=== PATIENT | male | born 1985 | race Two or more races ===

== ENCOUNTER 2019-10-27 06:15 | Day surgery (SDC) | payer OTHER ==
[~2019-10-27 06:15] MED LIST: ASPIR 8181 MG PO; BREO ELLIPTA 21 EACH IH; CARDIZEM CD120 MG PO; CILOSTAZOL100 MG PO; DERMACINRX5000 UNIT PO; IRBESARTAN-HCT1 EAC1 PO; JANUMET XR 50-1 EAC1 PO; MONTELUKAST SOD10 MG PO; ZETIA10 MG PO
[2019-10-27] MEDS ORDERED: COLACE100 MG PO (09:28)
[2019-10-27] MEDS ORDERED: NEURONTIN300 MG PO (09:28)
[2019-10-27] MEDS ORDERED: PERCOCET 5-3251 EACH PO (09:28)
== END 2019-10-27 12:50 | disposition home or self-care (01) ==
LOC: CIR.AMB 06:15
PROVIDERS: ATTEND Surgery
DX: K64.8 Other hemorrhoids (principal)

== ENCOUNTER 2020-01-18 09:00 | Day surgery (SDC) | payer OTHER ==
[~2020-01-18] VITALS: Ht 185.4 cm; Wt 163.3 kg
[~2020-01-18 09:00] MED LIST changes: +COLACE100 MG PO; +NEURONTIN300 MG PO; +PERCOCET 5-3251 EACH PO
[2020-01-19] MEDS ORDERED: PERCOCET 5-3251 EACH PO (12:55)
[2020-01-19] MEDS ORDERED: INTESTINEX680 M1 PO (12:55)
[2020-01-19] MEDS ORDERED: AMOX1TAB5 PO (12:55)
== END 2020-01-19 08:00 | disposition home or self-care (01) ==
LOC: CIR.AMB 09:00 → EDSTATUS 10:00 → SEC-K 14:56 → O/R 14:56 → SEC-K 17:10 → SURH 17:10 → O/R 17:10 → CIR.AMB 18:00 → SURH 01-19 14:45
PROVIDERS: ATTEND Surgery
DX: K61.0 Anal abscess (principal); K62.89 Other specified diseases of anus and rectum; K64.4 Residual hemorrhoidal skin tags; B96.29 Other Escherichia coli [E. coli] as the cause of diseases classified elsewhere; B96.7 Clostridium perfringens [C. perfringens] as the cause of diseases classified elsewhere; B96.6 Bacteroides fragilis [B. fragilis] as the cause of diseases classified elsewhere; Z20.828 Contact with and (suspected) exposure to other viral communicable diseases

== ENCOUNTER 2020-04-05 07:08 | Day surgery (SDC) | payer OTHER ==
[~2020-04-05 07:08] MED LIST changes: +AMOX1TAB5 PO; +INTESTINEX680 M1 PO
[2020-04-05] MEDS ORDERED: PERCOCET 5-3251 EACH PO (11:58)
[2020-04-05] MEDS ORDERED: COLACE100 MG PO (11:58)
== END 2020-04-05 16:20 | disposition home or self-care (01) ==
LOC: CIR.AMB 07:08
PROVIDERS: ATTEND Surgery
DX: K60.3 Anal fistula (principal); Z20.828 Contact with and (suspected) exposure to other viral communicable diseases